=== PATIENT | male | born 2000 | race Caucasian/White ===

== ENCOUNTER 2023-11-04 02:40 | Inpatient (IN) | payer OTHER, SELFPAY ==
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
[2023-11-04 06:37] VITALS: BMI 53.0
[2023-11-04 08:27] VITALS: BP 116/57; PULSE 64; RESP 18; TEMP 36.2; O2SAT 99
[2023-11-04 09:20] LABS: Alanine Aminotransferase 48 U/L (0-40); Albumin Level 4.3 g/dL (3.5-5.0); Alkaline Phosphatase 82 U/L (39-117); Anion Gap 13 (12-20); Aspartate Amino Transferase 26 U/L (5-37); Bilirubin Total 0.4 mg/dL (0.0-1.0); Blood Urea Nitrogen 10 mg/dL (9-16); Calcium 9.9 mg/dL (8.4-10.2); Carbon Dioxide 25 mmol/L (22-29); Chloride 108 mmol/L (96-108); Cholesterol 160 mg/dL (<200); Creatinine Clr Calc Pharmacy 236.2; Estimated Average Glucose 108 mg/dL; Estimated Glomerular Filt Rate > 60; Glucose Fasting 100 mg/dL (60-99); HDL Cholesterol 28 mg/dL (>40); Hemoglobin A1c % 5.4 % (<6.0); LDL Cholesterol Calculated 111 mg/dL (<100); Potassium 4.4 mmol/L (3.3-5.1); Sodium 142 mmol/L (135-145); Total Protein 8.1 g/dL (6.5-8.0); Triglycerides 107 mg/dL (<150)
--- NOTE | 2023-11-04 09:39 | P.HPPS_ITS ---
HPI Date of Service: 11/04/23 Chief Complaint: SI HPI Narrative: per crisis dariasara, pt self-presented [place] [facility] with SI and depression. he reports psychosocial stressors of he and his lyric's losing their apartment and moving back in with his mother, having a 6 month old child, his realizing he may not want to remain together with his lyric, who is now about 13 weeks . he has not found his mother and family in general supportive of his desired emancipation from the relationship. he had been on wellbutrin until about 1 year ago; he had felt improved on it and would like to restart GREG. he reported h/o 2 SA and 2 psych hosps in 7th and 12th grades, SA via stabbing self and overdose. he currently has no treaters and would like to re-engage with mental health services. on interview with MD, narrative is reinforced. R/B of wellbutrin discussed, including Sz and anxiety/agitation/insomnia. pt agreeable to restart. also interested in referrals for therapy and meds provider. denies safety concerns. concerned about bipolar disorder Dx, reassured there is no evidence to support the diagnosis at present. Past Psychiatric History: hosps - 2 prior in 7th and 12th grades. SA - 2 prior in 7th and 12th grades. SIB - h/o cutting, MRE in HS HIB - denies outpt - h/o outpt Tx, none in the past year. h/o ADHD Dx. 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 lives in his mother's home with his lyric and their 6 month old son. lyric is presently about 13 weeks . Substance History: tobacco - vapes daily alcohol - reports drinking monthly, about 6 drinks on each such occasion cannabis - reports weekly use cocaine - denies use. h/o use in HS. opioids - denies use. benzos - denies use. Trauma History: denies Diagnostics Vital Signs (24Hr): Vital Signs - 24 hr 11/04/23 08:27 Temperature 97.1 F Pulse Rate 64 Respiratory Rate 18 Blood Pressure 116/57 L Pulse Oximetry 99 Oxygen Delivery Method Room Air BMI result Body Mass Index 53.0 Labs 11/04/23 Unknown Labs: Laboratory Results - last 48 hr 11/04/23 Unknown Sodium 142 Potassium 4.4 Chloride 108 Carbon Dioxide 25 Anion Gap 13 BUN 10 Creatinine 0.74 Estim Creat Clear Calc 236.2 Estimated GFR > 60 Fasting Glucose 100 H Estimat Average Glucose 108 Hemoglobin A1c % 5.4 Calcium 9.9 Total Bilirubin 0.4 AST 26 ALT 48 H Alkaline Phosphatase 82 Total Protein 8.1 H Albumin 4.3 Triglycerides 107 Cholesterol 160 LDL Cholesterol, Calc 111 H HDL Cholesterol 28 L Meds/Allergies Meds Home Medications Medication Instructions Recorded Confirmed Type No Known Home Meds 11/04/23 11/04/23 History Allergies Allergies Allergy/AdvReac Type Severity Reaction Status Date / Time No Known Allergies Allergy Verified 11/04/23 06:38 Mental Status Exam Mental Status Exam Narrative: morbidly obese, adequately dressed and groomed. cooperative. speech nml rate, amount, loudness, tone, latency. thoughts linear and logical. affect constricted, normo-intense, non-labile. mood i'm here. denies SI/SIBI/HI/AVH. Assessment & Plan Assessment & Plan (1) Major depressive disorder: Status: Acute Code(s): F32.9 - Major depressive disorder, single episode, unspecified Plan restart wellbutrin Patient educated on: diagnosis, medication risk/benefits and substance abuse Reason for continued inpatient stay Substantial Risk for: harm to self, inability to function and rapid decompensation Statement Statement: I have reviewed the history and physical and performed a pertinent examination on my patient. No changes have occurred unless specified. If the History and Physical was not performed prior to admission, the Hospitalist's service will be consulted for completing the admission physical. Time Spent With Patient Time: Total time managing care of this patient today __75__ minutes.
[2023-11-04 09:47] LABS: Vitamin B12 414 pg/mL (200-900)
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
[2023-11-04] MEDS: Nicotine 21 MG PATCH.TD24 TRANSDERMA (15:33)
[2023-11-04] MEDS: buPROPion HCl XL 150 MG TAB.ER.24H PO (15:33)
[2023-11-04] MEDS: Silver Sulfadiazine 1 % Cream 20 GM TUBE 1 APPL TOPICAL (17:07)
[2023-11-04 19:40] VITALS: BP 122/60; PULSE 86; RESP 18; TEMP 36.2; O2SAT 99
[2023-11-05 07:00] VITALS: BMI 53.0
[2023-11-05 08:01] VITALS: BP 121/57; PULSE 73; RESP 18; TEMP 36.3; O2SAT 96
[2023-11-05] MEDS: buPROPion HCl XL 150 MG TAB.ER.24H PO (08:12)
[2023-11-05] MEDS: Nicotine 21 MG PATCH.TD24 TRANSDERMA (08:13)
[2023-11-05 09:18] LABS: Thyroid Stimulating Hormone 1.65 uIU/mL (0.32-4.0)
[2023-11-05] MEDS: Silver Sulfadiazine 1 % Cream 20 GM TUBE 1 APPL TOPICAL (09:38)
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
[2023-11-05 20:05] VITALS: BP 115/69; PULSE 76; RESP 18; TEMP 36.2; O2SAT 97
[2023-11-06 06:00] VITALS: BP 135/67; PULSE 79; RESP 16; TEMP 36.4; O2SAT 97
[2023-11-06] MEDS: Nicotine 21 MG PATCH.TD24 TRANSDERMA (08:38)
[2023-11-06] MEDS: buPROPion HCl XL 150 MG TAB.ER.24H PO (08:39)
[2023-11-06] MEDS: Silver Sulfadiazine 1 % Cream 20 GM TUBE 1 APPL TOPICAL (09:28)
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
[2023-11-07 08:00] VITALS: BP 141/62; PULSE 81; TEMP 36.2; O2SAT 97
[2023-11-07] MEDS: Nicotine 21 MG PATCH.TD24 TRANSDERMA (08:35)
[2023-11-07] MEDS: buPROPion HCl XL 300 MG TAB.ER.24H PO (08:37)
[2023-11-07] MEDS: Silver Sulfadiazine 1 % Cream 20 GM TUBE 1 APPL TOPICAL (09:50)
== END 2023-11-07 11:21 | disposition home or self-care (01) | DRG 751 ==
PROVIDERS: Social Worker; Admitting Provider Psychiatry & Neurology Psychiatry; Visit Provider Psychiatry & Neurology Psychiatry
DX: F33.1 Major depressive disorder, recurrent, moderate (principal); Z68.43 Body mass index [BMI] 50.0-59.9, adult; E66.01 Morbid (severe) obesity due to excess calories; F17.290 Nicotine dependence, other tobacco product, uncomplicated; Z71.6 Tobacco abuse counseling; Z91.51 Personal history of suicidal behavior; Z79.899 Other long term (current) drug therapy
CPT/HCPCS: 36415; 80053; 80061; 82607; 83036; 84443

== ENCOUNTER → 2023-11-04 02:40 | Outpatient (BNV) | payer OTHER, SELFPAY | PROVIDERS: Admitting Provider Psychiatry & Neurology Psychiatry; Visit Provider Psychiatry & Neurology Psychiatry | DX: F33.2 Major depressive disorder, recurrent severe without psychotic features (principal) | CPT/HCPCS: 99231; 99232; 99233 ==

== ENCOUNTER → 2023-11-04 02:40 | Outpatient (BNV) | payer MEDICAID, SELFPAY | PROVIDERS: Admitting Provider Psychiatry & Neurology Psychiatry; Visit Provider Physician Assistant | DX: T25.221A Burn of second degree of right foot, initial encounter (principal); E66.09 Other obesity due to excess calories; Z68.43 Body mass index [BMI] 50.0-59.9, adult | CPT/HCPCS: 99221 ==